=== PATIENT | female | born 1945 | race Caucasian/White ===

== ENCOUNTER 2016-06-14 13:49 | Inpatient (IN) | payer MEDICARE, BC ==
--- NOTE | 2016-06-14 14:34 | ED ---
General Adult HPI - General Chief complaint: Shortness of Breath Stated complaint: SOB Time Seen by Provider: 06/14/16 14:14 Source: patient, RN notes reviewed Mode of arrival: wheelchair Limitations: no limitations - History of Present Illness Initial comments: Patient is a pleasant 71-year-old female presenting to the emergency department with shortness of breath. Patient has asthma. Patient states breathing has been worse the past few days since being outside. Patient did see an federal mediator today and was given 3 nebulizer treatments without improvement of her pulmonary function test. Patient still feels somewhat short of breath. Patient does not want another breathing treatment at this time because she feels jittery. No fevers. Occasional dry cough. - Related Data Home Medications Medication Instructions Recorded Confirmed Albuterol Inhaler [Ventolin Hfa 2 puff INHALATION RT-Q6H PRN 06/14/16 06/14/16 Inhaler] Ascorbic Acid [Vitamin C] 500 mg PO DAILY 06/14/16 06/14/16 Aspirin EC [Ecotrin Low Dose] 81 mg PO DAILY 06/14/16 06/14/16 Cholecalciferol [Vitamin D3] 2,000 unit PO DAILY 06/14/16 06/14/16 DULoxetine HCL [Cymbalta] 30 mg PO DAILY 06/14/16 06/14/16 Ferrous Sulfate [Feosol] 650 mg PO BID 06/14/16 06/14/16 Fluticasone Nasal Coden [Flonase 1 spr EA NOSTRIL DAILY 06/14/16 06/14/16 Nasal Coden] Fluticasone/Salmeterol [Advair 2 puff INHALATION RT-BID 06/14/16 06/14/16 100-50 Diskus] Folic Acid 1 mg PO DAILY 06/14/16 06/14/16 Gabapentin [Neurontin] 300 mg PO DAILY 06/14/16 06/14/16 Montelukast [Singulair] 10 mg PO DAILY 06/14/16 06/14/16 Tiotropium 18 Mcg/Puff [Spiriva] 1 cap INHALATION RT-DAILY 06/14/16 06/14/16 Triamterene-Hctz 37.5-25Mg 1 cap PO DAILY 06/14/16 06/14/16 [Dyazide 37.5-25 Capsule] traMADol HCL [Ultram] 50 mg PO QID PRN 06/14/16 06/14/16 Allergies Allergy/AdvReac Type Severity Reaction Status Date / Time Penicillins AdvReac Rash/Hives Verified 06/14/16 14:13 Sulfa (Sulfonamide AdvReac Unknown Verified 06/14/16 14:13 Antibiotics) Review of Systems ROS Statement: Those systems with pertinent positive or pertinent negative responses have been documented in the HPI. ROS Other: All systems not noted in ROS Statement are negative. Constitutional: Denies: fever, chills Eyes: Denies: eye pain ENT: Denies: ear pain Respiratory: Reports: cough, dyspnea Cardiovascular: Denies: chest pain Endocrine: Denies: fatigue Gastrointestinal: Denies: abdominal pain Genitourinary: Denies: dysuria Musculoskeletal: Denies: back pain Skin: Denies: rash Neurological: Denies: weakness Past Medical History Past Medical History: Asthma, COPD Additional Past Medical History / Comment(s): Lupus, DDD, anemia, History of Any Multi-Drug Resistant Organisms: None Reported Past Surgical History: Cholecystectomy, Hysterectomy Past Psychological History: No Psychological Hx Reported Smoking Status: Former smoker Past Alcohol Use History: None Reported Past Drug Use History: None Reported General Exam Limitations: no limitations General appearance: alert, in no apparent distress Head exam: Present: atraumatic, normocephalic Eye exam: Present: normal appearance, PERRL ENT exam: Present: normal oropharynx Neck exam: Present: normal inspection Respiratory exam: Present: wheezes Cardiovascular Exam: Present: regular rate, normal rhythm Expanded Peripheral pulses: 2+: Radial (R), Radial (L), Dorsalis Pedis (R), Dorsalis Pedis (L) GI/Abdominal exam: Present: soft. Absent: tenderness Extremities exam: Present: normal inspection. Absent: pedal edema, calf tenderness Neurological exam: Present: alert Psychiatric exam: Present: normal affect, normal mood Skin exam: Present: normal color Course Vital Signs 06/14/16 06/14/16 13:59 14:59 Temperature 98.6 F 98.3 F Pulse Rate 77 78 Respiratory 18 18 Rate Blood Pressure 196/91 153/79 O2 Sat by Pulse 94 L 93 L Oximetry EKG Findings - EKG Comments: EKG Findings:: Normal sinus rhythm 73. MN 178. QRS 138. QT 400. QTc 440. Left axis. Right bundle branch block. Inferior Q waves. No acute ST change. Medical Decision Making - Medical Decision Making Patient updated on plan. Dr. Jose Carlos benavides for admission for . - Lab Data Result diagrams: 06/14/16 14:10 06/14/16 14:10 Lab Results 06/14/16 06/14/16 Range/Units 14:10 14:10 WBC 10.4 (3.8-10.6) k/uL RBC 4.24 (3.80-5.40) m/uL Hgb 13.2 (11.4-16.0) gm/dL Hct 40.2 (34.0-46.0) % MCV 94.9 (80.0-100.0) fL MCH 31.2 (25.0-35.0) pg MCHC 32.9 (31.0-37.0) g/dL RDW 13.9 (11.5-15.5) % Plt Count 335 (150-450) k/uL Neutrophils % 86 % Lymphocytes % 12 % Monocytes % 1 % Eosinophils % 0 % Basophils % 0 % Neutrophils # 8.9 H (1.3-7.7) k/uL Lymphocytes # 1.2 (1.0-4.8) k/uL Monocytes # 0.1 (0-1.0) k/uL Eosinophils # 0.0 (0-0.7) k/uL Basophils # 0.0 (0-0.2) k/uL Sodium 135 L (137-145) mmol/L Potassium 4.1 (3.5-5.1) mmol/L Chloride 101 (98-107) mmol/L Carbon Dioxide 23 (22-30) mmol/L Anion Gap 11 mmol/L BUN 18 H (7-17) mg/dL Creatinine 0.90 (0.52-1.04) mg/dL Est GFR (MDRD) Af Amer >60 (>60 ml/min/1.73 sqM) Est GFR (MDRD) Non-Af >60 (>60 ml/min/1.73 sqM) Glucose 121 H (74-99) mg/dL Calcium 10.2 (8.4-10.2) mg/dL Total Bilirubin 0.6 (0.2-1.3) mg/dL AST 24 (14-36) U/L ALT 29 (9-52) U/L Alkaline Phosphatase 69 (38-126) U/L Total Protein 7.0 (6.3-8.2) g/dL Albumin 4.1 (3.5-5.0) g/dL - Radiology Data Radiology results: image reviewed (Chest x-ray shows right greater than left bibasilar atelectasis versus infiltrate) Disposition Clinical Impression: Acute exacerbation of chronic obstructive airways disease Disposition: ADMITTED IP TO THIS HOSP
[2016-06-14 14:43] LABS: Basophils % (A) 0 %; CH 31.6; CHCM 33.5; Eosinophils % (A) 0 %; HCT 40.2 % (34.0-46.0); HDW 2.55; HGB 13.2 gm/dL (11.4-16.0); Luc # (Auto) 0.07; Luc % (Auto) 1; Lymphocytes # (A) 1.2 k/uL (1.0-4.8); Lymphocytes % (A) 12 %; MCH 31.2 pg (25.0-35.0); MCHC 32.9 g/dL (31.0-37.0); MCV 94.9 fL (80.0-100.0); Mean Platelet Volume 7.1; Monocytes # (A) 0.1 k/uL (0-1.0); Monocytes % (A) 1 %; Neutrophils # (A) 8.9 k/uL (1.3-7.7); Neutrophils % (A) 86 %; RBC 4.24 m/uL (3.80-5.40); RDW 13.9 % (11.5-15.5); WBC 10.4 k/uL (3.8-10.6); WBC (Perox) 10.73
[2016-06-14 14:51] LABS: ALT 29 U/L (9-52); AST 24 U/L (14-36); Alkaline Phosphatase 69 U/L (38-126); Anion Gap 11 mmol/L; Blood Urea Nitrogen 18 mg/dL (7-17); Calcium 10.2 mg/dL (8.4-10.2); Carbon Dioxide 23 mmol/L (22-30); Chloride 101 mmol/L (98-107); Glucose 121 mg/dL (74-99); Non-African American GFR(MDRD) >60 (>60 ml/min/1.73 sqM); Potassium 4.1 mmol/L (3.5-5.1); Sodium 135 mmol/L (137-145); Total Bilirubin 0.6 mg/dL (0.2-1.3)
--- NOTE | 2016-06-14 14:52 | XR ---
EXAMINATION TYPE: XR chest 2V DATE OF EXAM: 06/14/2016 2:45 PM COMPARISON: NONE HISTORY: History of asthma presents with dyspnea. TECHNIQUE: Frontal and lateral views of the chest are obtained. FINDINGS: Some eventration of right hemidiaphragm is present. There is right basilar opacity felt to reflect infiltrate and/or atelectasis. There is patchy left basilar atelectasis The cardiac silhouet te size is within normal limits with ectatic thoracic aorta. Spine is straightened on lateral view. T here is scoliotic curvature in the visualized upper lumbar spine. Cholecystectomy clips are noted on lateral view. IMPRESSION: Right greater than left bibasilar atelectasis and/or infiltrate.
[2016-06-14] MEDS ORDERED: IPRATROPIUM-ALBUTEROL 3 ML NEB INHALATION PRN ×2 (15:01→17:19)
[2016-06-14] MEDS ORDERED: LEVOFLOXACIN 500 MG TAB PO SCH (15:15)
[2016-06-14] MEDS: LEVOFLOXACIN 500 MG TAB PO SCH (15:35)
[2016-06-14] MEDS: SODIUM CHLORIDE 0.9% 1,000 ML IV SCH (15:36)
[2016-06-14] MEDS: IPRATROPIUM-ALBUTEROL 3 ML NEB INHALATION SCH ×2 (15:59→21:23)
[2016-06-14] MEDS: traMADol 50 MG TAB PO PRN (16:02)
[2016-06-14] MEDS ORDERED: traMADol 50 MG TAB PO PRN (17:19)
[2016-06-14 17:28] LABS: Glucose,Whole Blood 152 mg/dL (75-99)
[2016-06-14] MEDS ORDERED: FOLIC ACID 1 MG TAB PO SCH (17:30)
[2016-06-14] MEDS ORDERED: ACETAMINOPHEN TAB 325 MG TAB PO PRN (17:38)
[2016-06-14] MEDS: FLUTICASONE 50MCG/SPRAY NASAL 16GM EA NOSTRIL SCH (17:40)
[2016-06-14] MEDS: PANTOPRAZOLE 40 MG/10 ML VIAL IVP SCH (17:40)
[2016-06-14] MEDS: GABAPENTIN 300 MG CAP PO SCH (17:51)
[2016-06-14] MEDS: methylPREDNISolone SOD SUCCI 125 MG/2 ML VIAL IV SCH ×2 (17:51→23:45)
[2016-06-14] MEDS: INSULIN LISPRO (humaLOG) 300 UNIT/3 ML VIAL SQ SCH ×2 (17:51→21:43)
[2016-06-14] MEDS ORDERED: traMADol 50 MG TAB PO SCH (18:00)
[2016-06-14 18:40] VITALS: BMI 29.8
[2016-06-14 19:58] LABS: Hemoglobin A1C 5.6 % (4.2-6.1)
[2016-06-14] MEDS: FERROUS SULFATE 325 MG TAB PO SCH (20:21)
[2016-06-14] MEDS: MONTELUKAST 10 MG TAB PO SCH (20:21)
[2016-06-14] MEDS: HEPARIN SODIUM,PORCINE 5,000 UNIT/ML 1 ML VIAL SQ SCH (20:21)
[2016-06-14] MEDS: MELATONIN 3 MG TABLET PO SCH (20:21)
[2016-06-14] MEDS: SYMBICORT 80-4.5 MCG INHALER INHALATION SCH (21:23)
[2016-06-14 21:41] LABS: Glucose,Whole Blood 157 mg/dL (75-99)
--- NOTE | 2016-06-14 22:15 | HP ---
DATE OF ADMISSION: 06/14/2016 CHIEF COMPLAINT: Cough and sputum. HISTORY OF PRESENT ILLNESS: This 71-year-old woman with a past history of asthma, COPD, history of lupus, history of cholecystectomy, history of cholecystectomy, history of nicotine dependence, being followed by in the outpatient setting apparently was continuing to smoke. The patient was not feeling well over the past several days with increasing shortness of breath and cough and the patient apparently went to allergy test today and the patient was directed to [facility] emergency room by the pond sawyer who gave 3 treatments without much improvement. Pneumonia was suspected which . There is no history of fever, rigors or chills. No history of headache, loss of consciousness or seizures. PAST MEDICAL HISTORY: Asthma, COPD, lupus, anemia, history of nicotine dependence. Medications prior to admission include: 1. Ultram 50 mg t.i.d. p.r.n. 2. Dyazide 37.5 milligram 25 mg p.o. daily. 3. Spiriva 1 puff daily. 4. Singulair 10 mg. 5. Neurontin 300 mg. 6. Folic acid 1 mg daily. 7. Advair 2 puffs b.i.d. 8. Flonase one spray daily. 9. Iron sulfate 650 mg p.o. b.i.d. 10. Cymbalta 30 mg daily. 11. Vitamin D3 2000 mg daily. 12. Ecotrin 81 mg daily. 13. Vitamin C 500 mg daily. 14. Ventolin HFA 2 puffs q.6 p.r.n. ALLERGIES: PENICILLIN AND SULFA. FAMILY HISTORY: No history of heart disease or strokes in the family. SOCIAL HISTORY: History of smoking as mentioned earlier. No history of alcohol intake. REVIEW OF SYSTEMS: ENT: No diminishing hearing or diminished vision. CARDIOVASCULAR: No angina or palpitations. RESPIRATORY: As mentioned earlier. GI: No nausea or vomiting. : No dysuria. Nervous system: No numbness or weakness. ALLERGY/IMMUNOLOGY: As mentioned earlier. HEMATOLOGY/ONCOLOGY: No history of anemia. ENDOCRINE: No history of diabetes or hypothyroidism. CONSTITUTIONAL: As mentioned earlier. DERMATOLOGY: Negative. RHEUMATOLOGY: Negative. CONSTITUTIONAL: As mentioned earlier. PSYCHIATRY: As mentioned earlier. PHYSICAL EXAMINATION: Patient is alert and oriented times three. Pulse 88, blood pressure 146/85, respiration rate 22, temperature 97.0, pulse ox 98% on 2 liters. HEENT: Conjunctivae normal. Oral mucosa moist. NECK: No jugular venous distention. No carotid bruit. No lymph node enlargement. CARDIOVASCULAR: S1, S2 muffled. RESPIRATORY: Breath sounds diminished at the bases. Bilateral scattered rhonchi and crackles. Expiratory wheezing also present. ABDOMEN: Soft, obese, nontender. No mass palpable. LEGS: No edema. No swelling. Nervous system: Higher functions as mentioned earlier. Moves all four limbs. No focal motor or sensory deficits. LYMPHATICS: No lymph nodes palpable in the neck, axillae or groin. SKIN: No ulcer, rash or bleeding. LABS: CBC within normal limits. Sodium 135, glucose 121. ASSESSMENT: 1. Chronic obstructive pulmonary disease, acute exacerbation, with acute purulent tracheobronchitis with bilateral bronchopneumonia. 2. Hyponatremia. 3. Continued ongoing nicotine dependence. 4. Increased random blood sugar. 5. History of asthma, chronic obstructive pulmonary disease. 6. History of lupus. 7. History of anemia. 8. History of cholecystectomy. 9. ( ). 10. FULL CODE. RECOMMENDATIONS AND DISCUSSION: In this 71-year-old woman who presented with multiple complex medical issues, we will monitor the patient closely. Continue the current medications and continue symptomatic treatment. We will initiate intensive bronchodilator treatment antibiotics. Also recommend IV steroids and monitor blood sugars closely. DVT prophylaxis. Guarded prognosis because of multiple complex medical issues. Further recommendations to follow. A copy of dictation being forwarded to who is the primary physician. [facility] HOSPITALNathaniel
[2016-06-15] MEDS: SODIUM CHLORIDE 0.9% 1,000 ML IV SCH ×2 (01:16→11:35)
[2016-06-15] MEDS: methylPREDNISolone SOD SUCCI 125 MG/2 ML VIAL IV SCH ×4 (06:31→23:56)
[2016-06-15] MEDS: SYMBICORT 80-4.5 MCG INHALER INHALATION SCH ×2 (07:03→22:00)
[2016-06-15] MEDS: IPRATROPIUM-ALBUTEROL 3 ML NEB INHALATION SCH ×4 (07:03→22:00)
[2016-06-15 07:20] LABS: Glucose,Whole Blood 130 mg/dL (75-99)
[2016-06-15] MEDS ORDERED: TIOTROPIUM 18 MCG/PUFF INHALER INHALATION SCH (08:00)
[2016-06-15] MEDS: INSULIN LISPRO (humaLOG) 300 UNIT/3 ML VIAL SQ SCH ×4 (08:32→21:47)
[2016-06-15] MEDS: HEPARIN SODIUM,PORCINE 5,000 UNIT/ML 1 ML VIAL SQ SCH ×2 (08:37→21:24)
[2016-06-15] MEDS: TRIAMTERENE-HCTZ 37.5-25MG 1 EACH CAP PO SCH (08:37)
[2016-06-15] MEDS: GABAPENTIN 300 MG CAP PO SCH (08:37)
[2016-06-15] MEDS: traMADol 50 MG TAB PO PRN ×3 (08:37→18:35)
[2016-06-15] MEDS: ASPIRIN 81 MG CHEW PO SCH (08:37)
[2016-06-15] MEDS: FERROUS SULFATE 325 MG TAB PO SCH ×2 (08:38→21:00)
[2016-06-15] MEDS: PANTOPRAZOLE 40 MG/10 ML VIAL IVP SCH (08:38)
[2016-06-15] MEDS: FLUTICASONE 50MCG/SPRAY NASAL 16GM EA NOSTRIL SCH (08:38)
[2016-06-15] MEDS: CHOLECALCIFEROL 1,000 UNIT TAB PO SCH (08:39)
[2016-06-15] MEDS: DULoxetine HCL 30 MG CAPSULE.DR PO SCH (08:39)
[2016-06-15] MEDS: FOLIC ACID 1 MG TAB PO SCH (08:39)
[2016-06-15] MEDS: ASCORBIC ACID 500 MG TAB PO SCH (08:39)
[2016-06-15 09:16] LABS: Basophils % (A) 0 %; CH 31.5; CHCM 33.2; Eosinophils % (A) 0 %; HCT 39.2 % (34.0-46.0); HDW 2.55; HGB 12.6 gm/dL (11.4-16.0); Luc # (Auto) 0.02; Luc % (Auto) 0; Lymphocytes # (A) 0.9 k/uL (1.0-4.8); Lymphocytes % (A) 9 %; MCH 30.5 pg (25.0-35.0); MCHC 32.1 g/dL (31.0-37.0); MCV 95.2 fL (80.0-100.0); Mean Platelet Volume 6.7; Monocytes # (A) 0.2 k/uL (0-1.0); Monocytes % (A) 2 %; Neutrophils # (A) 9.3 k/uL (1.3-7.7); Neutrophils % (A) 89 %; RBC 4.11 m/uL (3.80-5.40); RDW 13.7 % (11.5-15.5); WBC 10.4 k/uL (3.8-10.6); WBC (Perox) 10.76
[2016-06-15 09:21] LABS: Anion Gap 10 mmol/L; Blood Urea Nitrogen 24 mg/dL (7-17); Calcium 9.7 mg/dL (8.4-10.2); Carbon Dioxide 22 mmol/L (22-30); Chloride 102 mmol/L (98-107); Glucose 133 mg/dL (74-99); Non-African American GFR(MDRD) >60 (>60 ml/min/1.73 sqM); Potassium 3.7 mmol/L (3.5-5.1); Sodium 134 mmol/L (137-145)
[2016-06-15] MEDS: DOCUSATE 100 MG CAP PO SCH ×2 (10:30→20:59)
[2016-06-15 12:24] LABS: Glucose,Whole Blood 155 mg/dL (75-99)
[2016-06-15 16:49] LABS: Glucose,Whole Blood 119 mg/dL (75-99)
--- NOTE | 2016-06-15 17:37 | P.PN ---
Subjective date of service 06/15/2016. Progress note being dictated for Dr. Branch. Interval history: This a 71-year-old female admitted withacute COPD exacerbation with bilateral bronchopneumonia, acute purulent tracheobronchitis in a patient with history of asthma and multiple other medical issues. Maintained on nebulized bronchodilators, systemic steroids,and antibiotics. Breathing slowly improving.denies chest pain, or palpitations.Complains of exertional shortness of breath. Objective - Vital Signs Vital signs: Vital Signs Temp 96.7 F L 06/15/16 15:00 Pulse 84 06/15/16 15:22 Resp 16 06/15/16 15:00 BP 160/79 06/15/16 15:00 Pulse Ox 92 L 06/15/16 15:00 Intake & Output 06/14/16 06/15/16 06/15/16 18:59 06:59 18:59 Intake Total 200 Output Total 300 Balance -100 Weight 78.925 kg Intake: Oral 200 Output: Urine 300 Other: Voiding Method Toilet Toilet Toilet # Voids 2 1 - Exam PHYSICAL EXAM: VITAL SIGNS: [as above] GENERAL: [has just returned from shower and is significantly short of breath] HEENT: [Pupils equal conjunctiva normal.mucosa moist] NECK: [Supple, no JVD] RESPIRATORY EFFORT:[increased] LUNGS: [bilateral bases diminished, scattered rhonchi , crackles ,expiratory wheezing throughout,] CARDIOVASCULAR[regular S1 and S2,no murmurs rubs or gallops no edema] GI: [Abdomen soft, nontender, positive bowel sounds.] PSYCH: [Alert and oriented -3, mood and affect normal.] NEURO: no focal deficits, moves all 4 extremities, strength and sensation grossly intact - Labs CBC & Chem 7: 06/15/16 08:47 06/15/16 08:47 Labs: Abnormal Lab Results - Last 24 Hours (Table) 06/14/16 06/14/16 06/15/16 Range/Units 17:22 21:37 07:18 Neutrophils # (1.3-7.7) k/uL Lymphocytes # (1.0-4.8) k/uL Sodium (137-145) mmol/L BUN (7-17) mg/dL Glucose (74-99) mg/dL POC Glucose (mg/dL) 152 H 157 H 130 H (75-99) mg/dL 06/15/16 06/15/16 06/15/16 Range/Units 08:47 08:47 12:22 Neutrophils # 9.3 H (1.3-7.7) k/uL Lymphocytes # 0.9 L (1.0-4.8) k/uL Sodium 134 L (137-145) mmol/L BUN 24 H (7-17) mg/dL Glucose 133 H (74-99) mg/dL POC Glucose (mg/dL) 155 H (75-99) mg/dL 06/15/16 Range/Units 16:46 Neutrophils # (1.3-7.7) k/uL Lymphocytes # (1.0-4.8) k/uL Sodium (137-145) mmol/L BUN (7-17) mg/dL Glucose (74-99) mg/dL POC Glucose (mg/dL) 119 H (75-99) mg/dL Assessment and Plan Plan: 1. [acute COPD exacerbation with acute purulent tracheobronchitis, with bilateral bronchopneumonia]. 2. [hyponatremia]. 3. [continued ongoing nicotine dependence]. 4. [history of asthma COPD]. 5. [history of lupus]. 6. [history of anemia]. 7. acute hypoxic respiratory failure secondary to #1 plan: Continue on current medication regime ,monitoring and symptomatic treatment. continue on nebulized bronchodilators, antibiotics, IV steroids. Close monitoring of Accu-Cheks. Increase ambulation as tolerated. Smoking cessation readdressed. Slow improvement, pulmonary consult initiated. Further recommendations to follow. The impression and plan of care has been dictated as directed. : I performed a H&P examination of this patient and discussed the same with the dictator. I agree with the dictator's note. Any additional findings/opinions/ etc. will be noted.
[2016-06-15] MEDS ORDERED: LEVOFLOXACIN 500 MG TAB PO STA (18:37)
[2016-06-15] MEDS: MELATONIN 3 MG TABLET PO SCH (20:59)
[2016-06-15] MEDS: MONTELUKAST 10 MG TAB PO SCH (20:59)
[2016-06-15] MEDS: LEVOFLOXACIN 500 MG TAB PO SCH (21:17)
[2016-06-15 21:33] LABS: Glucose,Whole Blood 174 mg/dL (75-99)
[2016-06-16] MEDS: methylPREDNISolone SOD SUCCI 125 MG/2 ML VIAL IV SCH (06:30)
[2016-06-16] MEDS: IPRATROPIUM-ALBUTEROL 3 ML NEB INHALATION SCH ×4 (07:07→20:34)
[2016-06-16] MEDS: SYMBICORT 80-4.5 MCG INHALER INHALATION SCH (07:08)
[2016-06-16 07:30] LABS: Glucose,Whole Blood 109 mg/dL (75-99)
--- NOTE | 2016-06-16 07:43 | PN ---
DATE OF SERVICE: 06/15/2016 This 71-year-old woman who was admitted with COPD acute exacerbation and bilateral bronchopneumonia is being closely monitored. Patient is on broad-spectrum antibiotics and bronchodilators and steroids. Seen and evaluated the patient along with nurse practitioner. Please refer to the nurse practitioner notes and impression documented as a scribe for further information.
[2016-06-16 08:13] LABS: Basophils % (A) 0 %; CH 31.4; CHCM 34.1; Eosinophils % (A) 0 %; HCT 40.4 % (34.0-46.0); HDW 2.74; HGB 13.5 gm/dL (11.4-16.0); Luc # (Auto) 0.07; Luc % (Auto) 0; Lymphocytes # (A) 1.1 k/uL (1.0-4.8); Lymphocytes % (A) 6 %; MCH 30.9 pg (25.0-35.0); MCHC 33.5 g/dL (31.0-37.0); MCV 92.3 fL (80.0-100.0); Mean Platelet Volume 6.7; Monocytes # (A) 0.5 k/uL (0-1.0); Monocytes % (A) 3 %; Neutrophils # (A) 15.5 k/uL (1.3-7.7); Neutrophils % (A) 90 %; RBC 4.37 m/uL (3.80-5.40); RDW 13.4 % (11.5-15.5); WBC 17.2 k/uL (3.8-10.6); WBC (Perox) 16.64
[2016-06-16 08:35] LABS: Anion Gap 9 mmol/L; Blood Urea Nitrogen 31 mg/dL (7-17); Calcium 9.9 mg/dL (8.4-10.2); Carbon Dioxide 24 mmol/L (22-30); Chloride 103 mmol/L (98-107); Glucose 119 mg/dL (74-99); Non-African American GFR(MDRD) >60 (>60 ml/min/1.73 sqM); Potassium 3.7 mmol/L (3.5-5.1); Sodium 136 mmol/L (137-145)
[2016-06-16] MEDS: INSULIN LISPRO (humaLOG) 300 UNIT/3 ML VIAL SQ SCH ×4 (08:52→20:56)
[2016-06-16] MEDS: GABAPENTIN 300 MG CAP PO SCH (08:56)
[2016-06-16] MEDS: CHOLECALCIFEROL 1,000 UNIT TAB PO SCH (08:56)
[2016-06-16] MEDS: DOCUSATE 100 MG CAP PO SCH ×2 (08:56→22:13)
[2016-06-16] MEDS: TRIAMTERENE-HCTZ 37.5-25MG 1 EACH CAP PO SCH (08:56)
[2016-06-16] MEDS: PANTOPRAZOLE 40 MG TABLET PO SCH (08:56)
[2016-06-16] MEDS: ASPIRIN 81 MG CHEW PO SCH (08:56)
[2016-06-16] MEDS: FOLIC ACID 1 MG TAB PO SCH (08:56)
[2016-06-16] MEDS: FLUTICASONE 50MCG/SPRAY NASAL 16GM EA NOSTRIL SCH (08:57)
[2016-06-16] MEDS: DULoxetine HCL 30 MG CAPSULE.DR PO SCH (08:57)
[2016-06-16] MEDS: FERROUS SULFATE 325 MG TAB PO SCH ×2 (08:57→22:11)
[2016-06-16] MEDS: HEPARIN SODIUM,PORCINE 5,000 UNIT/ML 1 ML VIAL SQ SCH ×2 (08:57→21:59)
[2016-06-16] MEDS: ASCORBIC ACID 500 MG TAB PO SCH (08:57)
[2016-06-16] MEDS: traMADol 50 MG TAB PO PRN ×3 (09:01→20:29)
[2016-06-16] MEDS ORDERED: BISACODYL 5 MG TABLET.DR PO STA (09:04)
[2016-06-16] MEDS: ALPRAZolam 0.25 MG TAB PO PRN (09:07)
--- NOTE | 2016-06-16 10:34 | P.CNPUL ---
History of Present Illness Consult date: 06/16/16 Reason for consult: dyspnea, cough, asthma, abnormal CXR/CT Chief complaint: Shortness of breath, cough, wheezing. History of present illness: 71-year-old female who apparently developed adult onset asthma the age of 40. Sees out in [facility]. Apparently does not see a lung doctor currently. Was recently taken off many of her medications for asthma. She wouldn't have some ALLERGY testing with one of the local high school physical education teacher here in town. Anyway the patient's asthma acted up. She also think that it may be treated by tree grass and weed pollen. She had all the typical complaints including chest tightness wheezing coughing and shortness of breath. Seen in the emergency room by Dr. Tao Del Angel. Was told by somebody that she may have pneumonia. Anyway she is on all the appropriate medications including albuterol Singulair and Advair. As mentioned earlier, she did see a rewrite editor at one time from [facility]. She does not remember his or her name. Today she is in the room with her great-grandson and granddaughter. Review of Systems A 12 point review of system is positive for shortness of breath chest tightness wheezing and cough. Not producing much or any phlegm. Feeling a bit better today compared to yesterday. Symptoms have been going on for a couple of days, primarily when she stopped many of her asthma medication to have ALLERGY testing both bone of the local high school physical education teacher. Past Medical History Past Medical History: Asthma, COPD Additional Past Medical History / Comment(s): Lupus, DDD, anemia, History of Any Multi-Drug Resistant Organisms: None Reported Past Surgical History: Cholecystectomy, Hysterectomy Past Psychological History: No Psychological Hx Reported Smoking Status: Current some day smoker Past Alcohol Use History: None Reported Past Drug Use History: None Reported Medications and Allergies Home Medications Medication Instructions Recorded Confirmed Type Albuterol Inhaler [Ventolin Hfa 2 puff INHALATION RT-Q6H PRN 06/14/16 06/14/16 History Inhaler] Ascorbic Acid [Vitamin C] 500 mg PO DAILY 06/14/16 06/14/16 History Aspirin EC [Ecotrin Low Dose] 81 mg PO DAILY 06/14/16 06/14/16 History Cholecalciferol [Vitamin D3] 2,000 unit PO DAILY 06/14/16 06/14/16 History DULoxetine HCL [Cymbalta] 30 mg PO DAILY 06/14/16 06/14/16 History Ferrous Sulfate [Feosol] 650 mg PO BID 06/14/16 06/14/16 History Fluticasone Nasal Rumsey [Flonase 1 spr EA NOSTRIL DAILY 06/14/16 06/14/16 History Nasal Rumsey] Fluticasone/Salmeterol [Advair 2 puff INHALATION RT-BID 06/14/16 06/14/16 History 100-50 Diskus] Folic Acid 1 mg PO DAILY 06/14/16 06/14/16 History Gabapentin [Neurontin] 300 mg PO DAILY 06/14/16 06/14/16 History Montelukast [Singulair] 10 mg PO DAILY 06/14/16 06/14/16 History Tiotropium 18 Mcg/Puff [Spiriva] 1 cap INHALATION RT-DAILY 06/14/16 06/14/16 History Triamterene-Hctz 37.5-25Mg 1 cap PO DAILY 06/14/16 06/14/16 History [Dyazide 37.5-25 Capsule] traMADol HCL [Ultram] 50 mg PO QID PRN 06/14/16 06/14/16 History Allergies Allergy/AdvReac Type Severity Reaction Status Date / Time Penicillins AdvReac Rash/Hives Verified 06/14/16 14:13 Sulfa (Sulfonamide AdvReac Unknown Verified 06/14/16 14:13 Antibiotics) Physical Exam Osteopathic Statement: *. No significant issues noted on an osteopathic structural exam other than those noted in the History and Physical/Consult. Vitals: Vital Signs Temp Pulse Pulse Resp BP BP Pulse Ox 06/16/16 07:17 68 06/16/16 07:08 69 92 L 06/16/16 07:00 97.6 F 70 18 164/88 92 L 06/15/16 23:00 97.5 F L 67 18 138/71 95 06/15/16 22:09 80 06/15/16 22:08 98 F 72 16 159/78 91 L 06/15/16 22:01 80 06/15/16 15:22 84 06/15/16 15:12 84 06/15/16 15:00 96.7 F L 78 16 160/79 92 L 06/15/16 13:35 70 06/15/16 13:22 70 Intake and Output 06/15/16 06/16/16 06/16/16 22:59 06:59 14:59 Intake Total 120 240 Balance 120 240 Intake: Oral 120 240 Other: Voiding Method Toilet # Voids 1 1 No acute distress, oriented 3. HEENT examination is grossly unremarkable. Mucous membranes are moist. No oral lesions. Neck supple. Full range of motion. No adenopathy or thyromegaly. Neck veins are flat. Cardiovascular examination reveals regular rhythm rate. S1 and S2 normal. No S3-S4 murmur. Lungs reveal diminished breath sounds. A few scattered rhonchi and wheezes. Breath sounds are diminished. This prolongation. No crackles. Breath sounds are equal bilaterally. Abdomen soft bowel sounds are heard. Extremities are intact. Skin is without rash or lesion. Results - Laboratory Findings CBC and BMP: 06/16/16 07:53 06/16/16 07:53 PT/INR, D-dimer D-Dimer 0.44 mg/L FEU (<0.60) 06/14/16 14:10 Abnormal lab findings: Abnormal Labs 06/14/16 06/14/16 06/15/16 17:22 21:37 07:18 WBC Neutrophils # Lymphocytes # Sodium BUN Glucose POC Glucose (mg/dL) 152 H 157 H 130 H 06/15/16 06/15/16 06/15/16 08:47 08:47 12:22 WBC Neutrophils # 9.3 H Lymphocytes # 0.9 L Sodium 134 L BUN 24 H Glucose 133 H POC Glucose (mg/dL) 155 H 06/15/16 06/15/16 06/16/16 16:46 21:31 06:39 WBC Neutrophils # Lymphocytes # Sodium BUN Glucose POC Glucose (mg/dL) 119 H 174 H 109 H 06/16/16 06/16/16 07:53 07:53 WBC 17.2 H Neutrophils # 15.5 H Lymphocytes # Sodium 136 L BUN 31 H Glucose 119 H POC Glucose (mg/dL) - Diagnostic Findings Chest x-ray: image reviewed (Chest x-ray labs and medications are all reviewed.) Assessment and Plan (1) Asthma exacerbation Status: Acute (2) COPD exacerbation Status: Acute (3) Environmental and seasonal allergies Status: Acute Plan: Plan dated 06/16/2016 The patient's medications are reviewed. She should be on a short acting beta agonist and a short acting muscarinic antagonist along with systemic corticosteroids a long-acting beta agonist and inhaled corticosteroid. I short course of oral antibiotics on a herniated either. I did give her my card. I like to see her in the office after discharge. Additional recommendations suggestions are forthcoming. Chest x-rays unimpressive. I saw the patient may have a mild purulent tracheobronchitis. No elvira pneumonia. Additional recommendations suggestions are forthcoming. Outpatient ALLERGY testing would probably be indicated. Time with Patient: Greater than 30
[2016-06-16 12:02] LABS: Glucose,Whole Blood 152 mg/dL (75-99)
--- NOTE | 2016-06-16 16:30 | P.PN ---
Subjective date of service 06/16/2016. Progress note being dictated for Dr. Branch. Interval history: This a 71-year-old female admitted withacute COPD exacerbation with bilateral bronchopneumonia, acute purulent tracheobronchitis in a patient with history of asthma and multiple other medical issues. Maintained on nebulized bronchodilators, systemic steroids,and antibiotics. Breathing improving.Non productive cough. evaluated by pulmonary with recommendations noted. denies chest pain, or palpitations. Objective - Vital Signs Vital signs: Vital Signs Temp 97.3 F L 06/16/16 15:00 Pulse 81 06/16/16 15:00 Resp 20 06/16/16 15:00 BP 155/85 06/16/16 15:00 Pulse Ox 94 L 06/16/16 15:27 Intake & Output 06/15/16 06/16/16 06/16/16 18:59 06:59 18:59 Intake Total 120 480 Balance 120 480 Intake: Oral 120 480 Other: Voiding Method Toilet Toilet # Voids 1 1 4 - Exam PHYSICAL EXAM: VITAL SIGNS: [as above] GENERAL: Sitting up in bed, mild anxiety HEENT: [Pupils equal conjunctiva normal.mucosa moist] NECK: [Supple, no JVD] RESPIRATORY EFFORT:[increased] LUNGS: [bilateral bases diminished, occasional scattered rhonchi and wheezes, no crackles] CARDIOVASCULAR[regular S1 and S2,no murmurs rubs or gallops no edema] GI: [Abdomen soft, nontender, positive bowel sounds.] PSYCH: [Alert and oriented -3, mood and affect normal.] NEURO: no focal deficits, moves all 4 extremities, strength and sensation grossly intact - Labs CBC & Chem 7: 06/16/16 07:53 06/16/16 07:53 Labs: Abnormal Lab Results - Last 24 Hours (Table) 06/15/16 06/15/16 06/16/16 Range/Units 16:46 21:31 06:39 WBC (3.8-10.6) k/uL Neutrophils # (1.3-7.7) k/uL Sodium (137-145) mmol/L BUN (7-17) mg/dL Glucose (74-99) mg/dL POC Glucose (mg/dL) 119 H 174 H 109 H (75-99) mg/dL 06/16/16 06/16/16 06/16/16 Range/Units 07:53 07:53 12:00 WBC 17.2 H (3.8-10.6) k/uL Neutrophils # 15.5 H (1.3-7.7) k/uL Sodium 136 L (137-145) mmol/L BUN 31 H (7-17) mg/dL Glucose 119 H (74-99) mg/dL POC Glucose (mg/dL) 152 H (75-99) mg/dL Assessment and Plan Plan: 1. [acute COPD exacerbation with acute purulent tracheobronchitis, with bilateral bronchopneumonia]. 2. [hyponatremia]. 3. [continued ongoing nicotine dependence]. 4. [history of asthma COPD]. 5. [history of lupus]. 6. [history of anemia]. 7. acute hypoxic respiratory failure secondary to #1 plan: Continue on current medication regime ,monitoring and symptomatic treatment. continue on nebulized bronchodilators, antibiotics, IV steroids. Pulmonary recommendations appreciated. Close monitoring of Accu-Cheks. Increase ambulation as tolerated. Smoking cessation readdressed. Nicotine patch added to med regime. Further recommendations to follow. The impression and plan of care has been dictated as directed. : I performed a H&P examination of this patient and discussed the same with the dictator. I agree with the dictator's note. Any additional findings/opinions/ etc. will be noted.
[2016-06-16 17:01] LABS: Glucose,Whole Blood 97 mg/dL (75-99)
[2016-06-16] MEDS: methylPREDNISolone SOD SUCCI 40 MG/ML 1 ML VIAL IV SCH ×2 (17:24→23:56)
[2016-06-16] MEDS: LEVOFLOXACIN 500 MG TAB PO SCH (17:24)
[2016-06-16] MEDS: NICOTINE 21MG/24HR PATCH TRANSDERM SCH (17:33)
[2016-06-16] MEDS ORDERED: POLYETHYLENE GLYCOL 3350 17 GM POWD.PACK PO STA (17:35)
[2016-06-16] MEDS: FORMOTEROL FUMARATE 20 MCG/2 ML NEBU INHALATION SCH (20:34)
[2016-06-16] MEDS: BUDESONIDE 1 MG/2 ML NEBU INHALATION SCH (20:34)
[2016-06-16 20:35] LABS: Glucose,Whole Blood 134 mg/dL (75-99)
[2016-06-16] MEDS: MELATONIN 3 MG TABLET PO SCH (22:02)
[2016-06-16] MEDS: MONTELUKAST 10 MG TAB PO SCH (22:11)
--- NOTE | 2016-06-16 22:32 | PN ---
DATE OF SERVICE: 06/16/2016 This 71-year-old woman who was admitted with COPD, acute exacerbation, is being closely monitored. The patient was suspected to have bronchopneumonia. Seen and evaluated the patient along with the nurse practitioner. Please refer to the nurse practitioner's notes and impressions documented as a scribe for further information. Further recommendations to follow.
[2016-06-17 07:08] LABS: Glucose,Whole Blood 95 mg/dL (75-99)
[2016-06-17] MEDS: INSULIN LISPRO (humaLOG) 300 UNIT/3 ML VIAL SQ SCH ×4 (08:04→22:43)
[2016-06-17] MEDS: FOLIC ACID 1 MG TAB PO SCH (08:05)
[2016-06-17] MEDS: ASCORBIC ACID 500 MG TAB PO SCH (08:05)
[2016-06-17] MEDS: GABAPENTIN 300 MG CAP PO SCH (08:05)
[2016-06-17] MEDS: PANTOPRAZOLE 40 MG TABLET PO SCH (08:05)
[2016-06-17] MEDS: FLUTICASONE 50MCG/SPRAY NASAL 16GM EA NOSTRIL SCH (08:05)
[2016-06-17] MEDS: NICOTINE 21MG/24HR PATCH TRANSDERM SCH (08:05)
[2016-06-17] MEDS: DULoxetine HCL 30 MG CAPSULE.DR PO SCH (08:05)
[2016-06-17] MEDS: DOCUSATE 100 MG CAP PO SCH ×2 (08:05→20:34)
[2016-06-17] MEDS: CHOLECALCIFEROL 1,000 UNIT TAB PO SCH (08:05)
[2016-06-17] MEDS: methylPREDNISolone SOD SUCCI 40 MG/ML 1 ML VIAL IV SCH ×2 (08:06→15:16)
[2016-06-17] MEDS: FERROUS SULFATE 325 MG TAB PO SCH ×2 (08:06→20:33)
[2016-06-17] MEDS: HEPARIN SODIUM,PORCINE 5,000 UNIT/ML 1 ML VIAL SQ SCH ×2 (08:06→20:34)
[2016-06-17] MEDS: ASPIRIN 81 MG CHEW PO SCH (08:06)
[2016-06-17] MEDS: TRIAMTERENE-HCTZ 37.5-25MG 1 EACH CAP PO SCH (08:06)
[2016-06-17 08:46] LABS: Basophils % (A) 0 %; CH 31.2; CHCM 32.7; Eosinophils % (A) 0 %; HDW 2.53; HGB 14.1 gm/dL (11.4-16.0); Luc # (Auto) 0.14; Luc % (Auto) 1; Lymphocytes # (A) 1.5 k/uL (1.0-4.8); Lymphocytes % (A) 10 %; MCH 31.6 pg (25.0-35.0); MCHC 32.9 g/dL (31.0-37.0); Mean Platelet Volume 6.9; Monocytes # (A) 0.6 k/uL (0-1.0); Monocytes % (A) 4 %; Neutrophils # (A) 13.2 k/uL (1.3-7.7); Neutrophils % (A) 86 %; RBC 4.48 m/uL (3.80-5.40); RDW 13.8 % (11.5-15.5); WBC 15.4 k/uL (3.8-10.6)
[2016-06-17] MEDS: BUDESONIDE 1 MG/2 ML NEBU INHALATION SCH ×2 (09:00→20:50)
[2016-06-17] MEDS: IPRATROPIUM-ALBUTEROL 3 ML NEB INHALATION SCH ×4 (09:00→20:50)
[2016-06-17] MEDS: FORMOTEROL FUMARATE 20 MCG/2 ML NEBU INHALATION SCH ×2 (09:00→20:50)
[2016-06-17 09:05] LABS: Anion Gap 8 mmol/L; Calcium 9.8 mg/dL (8.4-10.2); Carbon Dioxide 24 mmol/L (22-30); Chloride 104 mmol/L (98-107); Glucose 101 mg/dL (74-99); Non-African American GFR(MDRD) >60 (>60 ml/min/1.73 sqM); Sodium 136 mmol/L (137-145)
[2016-06-17 09:12] LABS: Potassium 4.5 mmol/L (3.5-5.1)
[2016-06-17 09:13] LABS: Blood Urea Nitrogen 33 mg/dL (7-17)
[2016-06-17 12:18] LABS: Glucose,Whole Blood 93 mg/dL (75-99)
[2016-06-17 14:48] VITALS: RESP 20
[2016-06-17] MEDS: LEVOFLOXACIN 500 MG TAB PO SCH (15:16)
--- NOTE | 2016-06-17 16:04 | PN ---
A 71-year-old female who developed adult-onset asthma at age 40. She sees out of [place], [place]. She currently does not see a lung doctor. She came in with an asthma exacerbation probably triggered by tree, grass and weed pollen. She was going to have some allergy testing at a local [facility], but never made it that far. Her complaints included chest tightness, wheezing, cough, and shortness of breath. Feeling a bit better today. She was seen in the emergency room by Dr. Ernst Del Angel. I asked her to stay one more day. She will come and see me in the office after discharge. Current vital signs are reviewed. Temperature is 97, heart rate 62, respiratory rate 20, blood pressure 163/87, mean 112, 4 L saturation 96%. Appears in no acute distress. HEENT examination is grossly unremarkable. Mucous membranes are moist. No oral lesions. Neck is supple. Full range of motion. No adenopathy or thyromegaly. Neck veins are flat. Cardiovascular examination reveals regular rhythm and rate, S1, S2 normal. No S3, S4 or murmur. Lungs reveal some expiratory and inspiratory rhonchi and wheezes. Breath sounds are diminished. There is prolongation on forced maneuver. She wheezes and coughs and forced maneuver. Abdomen is soft. Bowel sounds are heard. Extremities are intact. No cyanosis, clubbing or edema. Skin without rash or lesions. Brief neurologic examination is nonfocal. Labs are reviewed. White count 15.4, hemoglobin and hematocrit, and platelet count all normal. Sodium 136, potassium 4.5, chloride is 104, CO2 of 24, BUN and creatinine were 33 and 0.8 suggesting prerenal azotemia. Chest x-ray was reviewed yesterday. Medications were adjusted yesterday. ASSESSMENT: 1. Adult asthma with asthma exacerbation. 2. History of environmental and seasonal allergies. 3. Vitamin D deficiency. PLAN: The patient will continue with the current medications. I encouraged her to stay one more day. Probable discharge tomorrow. No additional recommendations are made. She will come and see me in the office post discharge.
[2016-06-17 17:00] LABS: Glucose,Whole Blood 112 mg/dL (75-99)
[2016-06-17] MEDS: predniSONE 20 MG TAB PO SCH (17:15)
[2016-06-17] MEDS: traMADol 50 MG TAB PO PRN (17:58)
[2016-06-17] MEDS: MONTELUKAST 10 MG TAB PO SCH (20:33)
[2016-06-17] MEDS: ALPRAZolam 0.25 MG TAB PO PRN (20:33)
[2016-06-17] MEDS: MELATONIN 3 MG TABLET PO SCH (20:33)
[2016-06-17 21:17] LABS: Glucose,Whole Blood 161 mg/dL (75-99)
[2016-06-18 06:56] LABS: Glucose,Whole Blood 94 mg/dL (75-99)
[2016-06-18] MEDS: INSULIN LISPRO (humaLOG) 300 UNIT/3 ML VIAL SQ SCH ×2 (07:16→12:23)
[2016-06-18 07:32] VITALS: BP 174/97; TEMP 97.1
--- NOTE | 2016-06-18 07:54 | PN ---
DATE OF SERVICE: 06/17/2016 This 71-year-old woman who was admitted with shortness of breath and COPD and bronchial asthma acute exacerbation, is closely monitored. No chest pain, no palpitation. No fever. On exam, alert and oriented x3. Pulse 79, blood pressure 116/89, respirations 20, temperature 98 degrees, pulse ox 94% on 2-L. HEENT: Conjunctivae normal. NECK: No jugular venous distention. CARDIOVASCULAR: S1 and S2, muffled. RESPIRATORY: Breath sounds diminished at the bases. Bilateral scattered rhonchi and crackles. ABDOMEN: Soft, nontender. LEGS: No edema, no swelling. NERVOUS SYSTEM: No focal deficits. LABS: WBC 15.4. Sodium 136. ASSESSMENT: 1. Chronic obstructive pulmonary disease, acute exacerbation, with acute purulent tracheobronchitis or bilateral bronchopneumonia. 2. Hyponatremia. 3. History of asthma. 4. History of ongoing nicotine dependence. 5. History of chronic obstructive pulmonary disease. 6. History of lupus. 7. History of anemia. 8. Acute hypoxic respiratory failure, present on admission, secondary to #1. 9. FULL CODE. RECOMMENDATIONS AND DISCUSSION: In this 71-year-old woman who presented with multiple complex medical issues. We will monitor the patient closely. Continue the current medications and continue symptomatic treatment. Otherwise will cut down the steroids further and continue with antibiotics and the rest of the medications. Continue bronchodilators. The prognosis is guarded because of multiple complex medical issues. Further recommendations to follow.
[2016-06-18] MEDS: TRIAMTERENE-HCTZ 37.5-25MG 1 EACH CAP PO SCH (08:20)
[2016-06-18] MEDS: GABAPENTIN 300 MG CAP PO SCH (08:20)
[2016-06-18] MEDS: DULoxetine HCL 30 MG CAPSULE.DR PO SCH (08:20)
[2016-06-18] MEDS: predniSONE 20 MG TAB PO SCH (08:20)
[2016-06-18] MEDS: NICOTINE 21MG/24HR PATCH TRANSDERM SCH (08:20)
[2016-06-18] MEDS: FERROUS SULFATE 325 MG TAB PO SCH (08:20)
[2016-06-18] MEDS: ASPIRIN 81 MG CHEW PO SCH (08:20)
[2016-06-18] MEDS: PANTOPRAZOLE 40 MG TABLET PO SCH (08:20)
[2016-06-18] MEDS: DOCUSATE 100 MG CAP PO SCH (08:20)
[2016-06-18] MEDS: CHOLECALCIFEROL 1,000 UNIT TAB PO SCH (08:20)
[2016-06-18] MEDS: ASCORBIC ACID 500 MG TAB PO SCH (08:20)
[2016-06-18] MEDS: FOLIC ACID 1 MG TAB PO SCH (08:20)
[2016-06-18] MEDS: FLUTICASONE 50MCG/SPRAY NASAL 16GM EA NOSTRIL SCH (08:21)
[2016-06-18] MEDS: HEPARIN SODIUM,PORCINE 5,000 UNIT/ML 1 ML VIAL SQ SCH (08:21)
[2016-06-18] MEDS: IPRATROPIUM-ALBUTEROL 3 ML NEB INHALATION SCH ×2 (09:15→13:25)
[2016-06-18] MEDS: FORMOTEROL FUMARATE 20 MCG/2 ML NEBU INHALATION SCH (09:17)
[2016-06-18] MEDS: BUDESONIDE 1 MG/2 ML NEBU INHALATION SCH (09:17)
[2016-06-18 11:56] LABS: Glucose,Whole Blood 97 mg/dL (75-99)
[2016-06-18 13:29] VITALS: PULSE 100
--- NOTE | 2016-06-18 14:30 | PN ---
71-year-old female with a history of adult-onset asthma. Her primary doctor is in [place]. He was admitted with a diagnosis of asthma exacerbation. She thinks that tree, grass and weed pollen triggered her disease. She apparently was going to see an medical practitioners here in town before this all happened. Has not seen a lung doctor. Seen by Dr. Ernst Del Angel in the emergency room. Feeling much better. She wanted to go home yesterday. I told her to stay one more day. Could be considered for discharge today. I did give her my card and asked her to come see me in the office after discharge if she felt the need. Currently, her vital signs are reviewed. They include a temperature which is 97.1, heart rate 76, respiratory rate 20, blood pressure 135/72, mean 93, 4 liters saturation 94%. Appears in no acute distress. HEENT examination is grossly unremarkable. Mucous membranes are moist. No oral lesions. Neck is supple. Full range of motion. No adenopathy or thyromegaly. Neck is veins are flat. Cardiovascular examination reveals regular rhythm and rate. Heart rate 76. S1, S2 normal. LUNGS: Reveal a few scattered mild rhonchi and wheezes. Breath sounds diminished. Slight prolongation. Breath sounds are much improved. Adventitious lung sounds are more prominent on forced maneuver. ABDOMEN: Soft. Bowel sounds are heard. EXTREMITIES: Intact. No cyanosis, clubbing or edema. Skin is without rash. No lesions on the skin. Neurologic examination is brief, but nonfocal. ASSESSMENT: 1. Asthma exacerbation, likely triggered by environmental allergens. 2. History of environmental and seasonal allergies. 3. Vitamin D deficiency. PLAN: The patient is doing better. Could be considered for discharge. Her primary currently in the hospital is Dr. Branch's service. Will allow them to make the final decision. She did get a card. I told her we could do allergy testing in the office as well as pulmonary function test. Additional recommendations and suggestions are forthcoming. She will have to be determined whether or not she needs oxygen at home.
--- NOTE | 2016-06-19 13:27 | DS ---
DATE OF ADMISSION: 06/14/2016 DATE OF DISCHARGE: 06/18/2016 FINAL DIAGNOSES: 1. Chronic obstructive pulmonary disease exacerbation with acute purulent bronchitis and bilateral bronchopneumonia. 2. Hyponatremia. 3. History of asthma. 4. History of ongoing nicotine dependence. 5. Chronic obstructive pulmonary disease. 6. History of lupus. 7. History of anemia. 8. Acute hypoxic respiratory failure present on admission secondary to #1. 9. FULL CODE. DISCHARGE DISPOSITION: The patient will be discharged in stable condition with guarded prognosis. Total time taken 35 minutes. HISTORY OF PRESENT ILLNESS: This 71-year-old woman with a past medical history of multiple medical problems was admitted with COPD acute exacerbation, and possible bronchopneumonia and was treated with bronchodilators, in conjunction with pulmonary, antibiotics and bronchodilators. On exam, vital signs stable. Cardiovascular: S1, S2 muffled. Respiratory: A few scattered rhonchi. ABDOMEN: soft. Central nervous system: No focal deficits. The patient will be discharged in stable condition with guarded prognosis with the following advice and medications: 1. Diet is cardiac. 2. Activity limited until follow-up. 3. Follow up with Dr. Hale as advised. 4. Follow-up with in 1 to 2 days. Medications are as follows: 1. Xanax 0.5 q.8 p.r.n. 2. Tylenol 650 q.6 p.r.n. 3. Albuterol HFA p.r.n. 4. Vitamin C 500 mg p.o. daily. 5. Ecotrin 81 mg. 6. Vitamin D3 2000 daily. 7. Cymbalta 30 mg daily. 8. Iron sulfate 650 mg p.o. b.i.d. 9. Fluticasone one spray daily. 10. Advair 1 puff b.i.d. 11. Folic acid 1 mg p.o. daily. 12. Neurontin 300 mg daily. 13. Albuterol Atrovent updrafts q.i.d. and p.r.n. 14. Levaquin 500 mg p.o. daily for 5 days. 15. Singulair 10 mg p.o. daily. 16. Habitrol 21 days. No smoking. 17. Spiriva 1 puff daily. 18. Triamterene Hydrochlorothiazide 37.5 mg p.o. daily. 19. Ultram 50 mg t.i.d. p.r.n. Once again the patient will be discharged in a stable condition with guarded prognosis. Total time taken 35 minutes.
== END 2016-06-18 14:34 | disposition home or self-care (01) | DRG 190 ==
LOC: EC 13:49 → 4MS4W 15:01
PROVIDERS: ADMIT Hospitalist; ATTEND Hospitalist
DX: J44.0 Chronic obstructive pulmonary disease with (acute) lower respiratory infection (principal); J18.0 Bronchopneumonia, unspecified organism; J96.01 Acute respiratory failure with hypoxia; E87.1 Hypo-osmolality and hyponatremia; J45.901 Unspecified asthma with (acute) exacerbation; J20.9 Acute bronchitis, unspecified; F17.200 Nicotine dependence, unspecified, uncomplicated; J44.1 Chronic obstructive pulmonary disease with (acute) exacerbation; E55.9 Vitamin D deficiency, unspecified; Z90.49 Acquired absence of other specified parts of digestive tract; Z90.710 Acquired absence of both cervix and uterus; Z79.82 Long term (current) use of aspirin; Z79.52 Long term (current) use of systemic steroids; Z79.899 Other long term (current) drug therapy
CPT/HCPCS: 36415; 71020; 80048; 80053; 83036; 83605; 85025; 85379; 87040; 93005; 94640; 94760; 96360; 99285